=== PATIENT | male | born 1975 | race Caucasian/White ===

== ENCOUNTER 2020-08-22 11:17 | Emergency (ER) | payer SELFPAY ==
[~2020-08-22] VITALS: Ht 167.6 cm; Wt 74.8 kg
[2020-08-22 11:24] VITALS: BP 151/82
--- NOTE | 2020-08-22 11:28 | NUR ---
PT AMBULATED TO BED 05.
--- NOTE | 2020-08-22 11:54 | NUR ---
ERMD AT BEDSIDE EVALUATING PT.
[2020-08-22] MEDS ORDERED: KETOROLAC 60 MG/2 ML VIAL IM ONE (12:00)
--- NOTE | 2020-08-22 12:05 | NUR ---
45 YEAR OLD MALE COMPLAINS OF ABDOMINAL PAIN X 5 MONTHS. PT STATES THAT TODAY THE PAIN IS MORE SEVERE SO HE DECIDED TO COME IN. PT DENIES N/V/D. PT AOX4, BREATHING EVEN AND UNLABORED, SKIN WARM AND DRY. BED IN LOWEST POSITION, LOCKED, BED RAIL UPX1. PMH - HTN ALLERGIES - NKA
--- NOTE | 2020-08-22 13:00 | NUR ---
PT ALERT AND AWAKE, BREATHING EVEN AND UNLABORED. NO DISTRESS NOTED.
[2020-08-22] MEDS ORDERED: NAPR-54 PO (13:15)
[2020-08-22 14:30] VITALS: BP 151/82
--- NOTE | 2020-08-22 14:30 | NUR ---
Patient discharged with v/s stable. Written and verbal after care instructions about abdominal pain given and explained. Patient alert, oriented and verbalized understanding of instructions. Ambulatory with steady gait. All questions addressed prior to discharge. ID band removed. Patient advised to follow up with PMD. Rx of naproxen given. Patient educated on indication of medication including possible reaction and side effects. Opportunity to ask questions provided and answered.
== END 2020-08-22 14:30 | disposition home or self-care (01) ==
LOC: MED 11:17
DX: R10.31 Right lower quadrant pain (principal)
CPT/HCPCS: 74022; 96372; 99283; J1885